=== PATIENT | female | born 1935 | race Caucasian/White ===

== ENCOUNTER 2017-10-29 16:55 | Emergency (ER) | payer OTHER ==
[~2017-10-29] VITALS: Ht 165.1 cm; Wt 74.4 kg
--- NOTE | 2017-10-29 17:00 | NUR ---
R HIP PAIN S/P MECHANICAL SLIP AND FALL 45 MINS OUTSIDE CUTTER HAND, WAS GIVEN 100MCG F[facility] FOR PAIN, NAD NOTED, VSS, RESP EVEN AND UNLABORED, PT WAS PUT ON MONITOR, WAITING FOR MD LOPEZ.
[2017-10-29] MEDS ORDERED: ONDANSETRON HCL/PF 4 MG/2 ML VIAL ONE (17:08)
[2017-10-29] MEDS ORDERED: MORPHINE SULFATE INJ 4 MG/ML DISP.SYRIN ONE ×2 (17:08→20:50)
[2017-10-29 17:16] LABS: BASOPHILS % (AUTO) 0.2 % (0.0-2.0); EOSINOPHILS % (AUTO) 0.6 % (0.0-6.0); HEMATOCRIT 38 % (33-45); HEMOGLOBIN 12.8 g/dL (11.5-14.8); LYMPHOCYTES # (AUTO) 1.6 /CMM (0.8-4.8); LYMPHOCYTES % (AUTO) 22.7 % (20.0-44.0); MEAN CORPUSCULAR HEMOGLOBIN 31 PG (26.0-33.0); MEAN CORPUSCULAR HGB CONC 34 g/dl (31.0-36.0); MEAN CORPUSCULAR VOLUME 92 fL (82-100); MONOCYTES # (AUTO) 0.5 /CMM (0.1-1.30); MONOCYTES % (AUTO) 7.1 % (2.0-12.0); NEUTROPHILS % (AUTO) 69.4 % (43.0-81.0); PLATELET COUNT (AUTO) 210 /CMM (150-450); RDW COEFFICIENT OF VARIATION 12.8 (11.5-15.0); RED BLOOD CELL COUNT(AUTO) 4.09 MIL/uL (4.0-5.2); WHITE BLOOD COUNT (AUTO) 7.1 K/uL (4.3-11.0)
[2017-10-29 17:28] LABS: CALCIUM, SERUM 9.2 mg/dL (8.5-10.1); CARBON DIOXIDE 26 mmol/L (21-32); CHLORIDE 107 mmol/L (98-107); CREATININE 1.1 mg/dL (0.6-1.3); GLUCOSE 117 mg/dL (74-106); POTASSIUM 3.8 mmol/L (3.5-5.1); SODIUM SERUM 140 mmol/L (136-145); UREA NITROGEN, BLOOD 23 mg/dL (7-18)
[2017-10-29] MEDS ORDERED: IV NS 0.9% 1,000 ML BAG IV ONE (17:30)
[2017-10-29] MEDS ORDERED: MORPHINE SULFATE INJ 2 MG/ML DISP.SYRIN IV ONE ×2 (17:30→21:00)
[2017-10-29] MEDS ORDERED: ONDANSETRON HCL/PF 4 MG/2 ML VIAL IVP ONE (17:30)
[2017-10-29 17:32] LABS: INR 0.95 (0.85-1.15)
[2017-10-29 17:34] LABS: ALANINE AMINOTRANSFERASE 19 U/L (12-78); ALBUMIN 3.4 g/dL (3.4-5.0); ALKALINE PHOSPHATASE 74 U/L (46-116); ASPARTATE AMINOTRANSFERASE 19 U/L (15-37); BILIRUBIN,DIRECT 0.1 mg/dL (0.0-0.2); BILIRUBIN,TOTAL 0.4 mg/dL (0.2-1.0); TOTAL PROTEIN, SERUM 6.5 g/dL (6.4-8.2)
[2017-10-29 17:36] LABS: TROPONIN I < 0.017 ng/mL (0.00-0.056)
[2017-10-29] MEDS ORDERED: FENTANYL PF 100MCG/2ML AMPUL IV ONE ×2 (18:00→20:00)
[2017-10-29] MEDS ORDERED: MIDAZOLAM HCL 2 MG/2ML VIAL IV ONE (18:00)
[2017-10-29] MEDS ORDERED: MIDAZOLAM HCL 5 MG/5ML VIAL ONE (18:09)
[2017-10-29] MEDS ORDERED: FENTANYL PF 100MCG/2ML AMPUL ONE (18:09)
--- NOTE | 2017-10-29 18:35 | NUR ---
CALLED [facility] SPOKE WITH CHANTELLE, EXPECTING A CALL BACK FROM [facility]
--- NOTE | 2017-10-29 19:41 | NUR ---
CALLED [facility] TO FOLLOW UP ON TRANSFER INFORMATION SPOKE WITH MARIO, WE ARE STILL WAITING FOR BED PLACEMENT.
--- NOTE | 2017-10-29 19:47 | NUR ---
[facility] CALLED SPOKE WITH ARACELIS PATIENT WILL BE TRANSFERED TO [facility] ACCEPTING DR MORRISON NUMBER TO CALL REPORT BLS ETA [phone]
[2017-10-29 20:14] VITALS: BP 136/66
[2017-10-29] MEDS ORDERED: MORPHINE SULFATE INJ 2 MG/ML DISP.SYRIN ONE (20:50)
== END 2017-10-29 21:11 | disposition short-term general hospital (02) ==
LOC: ER 16:56
DX: S73.014A Posterior dislocation of right hip, initial encounter (principal); Z96.643 Presence of artificial hip joint, bilateral; Z96.653 Presence of artificial knee joint, bilateral; W01.0XXA Fall on same level from slipping, tripping and stumbling without subsequent striking against object, initial encounter; Y93.89 Activity, other specified; Y92.89 Other specified places as the place of occurrence of the external cause; Y99.8 Other external cause status
CPT/HCPCS: 27265; 36415; 71045; 72170; 73501; 80048; 80076; 84484; 85025; 85730; 93005; 96374; 96375; 96376; 99152; 99285; A4606; J2250; J2270 ×3; J2405; J3010; J7030; Z7610